=== PATIENT | male | born 1975 | race Caucasian/White ===

== ENCOUNTER 2019-05-31 13:46 | Outpatient (CLI) | payer OTHER ==
[2019-05-31 14:25] VITALS: BP 136/94
--- NOTE | 2019-05-31 14:25 | SLEEP CARE CONSULTATION ---
Information from patient questionnaire entered by Maureen Camara. I have reviewed and concur with the information entered by Maureen Camara. This document represents the service I personally performed and the decisions made by me, Gilberto Castellano MD, [facility]. History of Present Illness Reason for Visit: New patient Chief Complaint: reports: Snoring, Observed pauses in breathing, Fatigue, Frequent awakenings at night Duration of Symptoms: 3-5 years Usual bedtime: 2230 Time it takes to fall asleep: 15-45 minutes Snores at night: Yes Observed to quit breathing while asleep: Yes Sleeps alone due to snoring: Yes (somtimes) Number of times waking at night: 6-7 Reasons for waking at night: reports: Other (unknown reasons) Toss, Turn, or Twitch while sleeping: Yes Recalls having dreams: Yes Usually gets out of bed at: [id number] Feels refreshed in the morning: No Morning headache: No Sleepy or fatigued during the day: Yes Ever fallen asleep while driving: No Takes day naps: No Dreams during day naps: No Prior sleep studies: No Additional HPI information: I had the pleasure of seeing Mr. Youngblood today regarding the possibility of him having a sleep disorder. As you know, he is a 43 year old gentleman who complains of loud snore, frequent awakenings, and persistent fatigue for the past 3 5 years. The patient tells me that he normally goes to bed around 10:30 pm, and it takes him approximately 15 - 45 minutes to fall asleep. He has not been told that he snores loudly and irregularly at night. He has also never been observed to stop breathing in his sleep. His has to occasionally sleep in a separate room. He can recall waking up on the average of 6 - 7 times during the night. Most of the time he wakes up because of no reasons. He has awakened occasionally because of his own snoring, choking, and having to gasp for air. There is a lot of tossing and turning in his sleep. No somniloquy (sleep talking) or somnambulism (sleep walking). Generally he can recall having dreams. In the morning he usually gets up out of the bed around 5 - 6 a.m. not feeling refreshed nor rested. He usually does not have a morning headache. During the day he complains of feeling sleepy and fatigued. His score on [place] Sleepiness Scale is 3 out of 24. He has never fallen asleep while driving nor has had any accident due to sleepiness. He usually does not take naps during the day. Upon falling asleep during the day he denies having vivid dreams. He has never had sleep paralysis, experienced cataplexy but reports symptoms of restless leg syndrome. He denies having impaired concentration during the day. Subjective Initial [place] Sleepiness Scale score: 2 Past Medical History Past Medical History: reports: Other (BPH) Social History The patient's occupation is active . Patient is and lives in [place]. Have you smoked in the past 12 months: Yes Cigarettes per day (20/pack): 20 Years of smokin Quit date: 2012 Smoking Pack Years: 20.0 Alcohol use: Yes Alcohol amount and frequency: 2 drinks/week Caffeine use: Yes Caffeine amount and frequency: 16 oz/day Family History Family history of sleep disordered breathing: Yes Family Hx Sleep Apnea: Father: Snoring Allergies and Home Medications Drug allergies reviewed: Yes Home medication list reviewed: Yes Allergy and home medication list: Meds: Flomax Review of Systems Weight gain over past 5 years: 15 Cardiovascular: denies: high blood pressure, palpitations, chest pain, irregular heart rate or pulse, leg or foot swelling, have to sleep sitting up, other Respiratory: denies: shortness of breath, wheeze, sputum production, chronic cough, other Gastrointestinal: denies: heartburn, difficulty swallowing, nausea, vomitting, diarrhea, abdominal pain, other Urinary: reports: frequency Neurological: denies: headaches, seizure, head trauma, disorientation, speech dysfunction, gait or balance problems, fainting or unconsciousness, other Psychiatric: denies: Attention Deficit Hyperactivity, anxiety, depression, mood disorder, claustrophobia, other Ear/Nose/Throat: denies: nasal congestion, sinus problems, nose bleeds, dry mouth/throat, hoarseness, injury to nose, tonsillectomy, wisdom teeth removed, other Endocrine: denies: thyroid disease, history of goiter, sluggishness, too hot or cold, excessive thirst, increased appetite, increased urination, unexplained weakness, other Musculoskeletal: denies: joint pain, neck pain, back pain, joint swelling, muscle pain or cramping, mobility problems, other Immunologic: denies: sneezing, rash, itching, allergies to food or environment, other Physical Exam Vital signs obtained and entered by: Dr. Castellano Blood Pressure: 136/94 Cuff size: regular Heart Rate: 56 O2 Saturation: 98 Height: 6 ft 2 in Weight: 255 lb Body Mass Index: 32.7 BMI Classification: Obesity Class 1 Mood/affect: normal HEENT: No craniofacial malformation Nostrils: patent to airflow Turbinates: normal Septum: midline Mouth and throat: narrow oropharynx Soft palate: long Hard palate: normal Uvula: normal Uvula visualization: 50% Mallampati Class II Tongue: normal in size Tonsils: absent bilaterally Chin and jaw: normal size and position Neck: normal w/o lymphadenopathy or thyromegaly Heart: regular rate and rhythm Lungs: clear bilaterally Abdomen: soft Extremities: no edema or clubbing Neurologic: intact Impression and Plan IMPRESSION: 1. Obstructive Sleep Apnea-Hypopnea Syndrome, as suggested by history of loud and irregular snoring, observed cessation of breath while asleep, frequent awakenings during the night, unrefreshed sleep, and daytime hypersomnolence. Narrow oropharynx and obesity are common predisposing factors for obstructive sleep apnea-hypopnea syndrome. Pathophysiology of sleep-disordered breathing was discussed. I recommend proceeding to polysomnography to confirm the diagnosis and to assess severity. If he has significant sleep disordered breathing, a manual CPAP titration study will also be performed to find the optimal treatment pressure. I informed the patient of what the sleep studies involve and after some discussion, he agreed to proceed. Plan: 1. Schedule polysomnography + manual CPAP titration study and return in 1 to 2 weeks after the study to discuss result and initiate therapy. 2. Avoid long distance driving or when feeling sleepy. 3. Avoid alcohol, sedative and muscle relaxant around bedtime. 4. Attempt to lose weight. I spent 100% of this 20 minute visit face to face with the patient with greater than 50% of this was spent time counseling the patient and coordination of care.
== END 2019-05-31 13:47 | disposition home or self-care (01) ==
LOC: SC 13:46
PROVIDERS: ATTEND Internal Medicine Pulmonary Disease
DX: R06.83 Snoring (principal); R06.81 Apnea, not elsewhere classified; G47.8 Other sleep disorders; G47.10 Hypersomnia, unspecified
CPT/HCPCS: 99203; 99212

== ENCOUNTER 2019-09-23 20:22 | Outpatient (CLI) | payer OTHER | END 2019-09-23 20:23 | disposition home or self-care (01) | LOC: SC 20:22 | PROVIDERS: ATTEND Internal Medicine Pulmonary Disease | DX: G47.33 Obstructive sleep apnea (adult) (pediatric) (principal); E66.9 Obesity, unspecified; Z68.32 Body mass index [BMI] 32.0-32.9, adult | CPT/HCPCS: 95810 ==

== ENCOUNTER 2019-10-12 10:49 | Outpatient (CLI) | payer OTHER ==
[2019-10-12 11:37] VITALS: BP 118/80
--- NOTE | 2019-10-12 11:37 | SLEEP CARE CONSULTATION ---
Information from patient questionnaire entered by Brandi Mcgill. I have reviewed and concur with the information entered by Brandi Mcgill. This document represents the service I personally performed and the decisions made by me, Penny Ramirez RN, MSN, [employer]. History of Present Illness Initial [place] Sleepiness Scale score: 2 Current [place] Sleepiness Scale score: 9 Additional HPI information: ZELDA MATOS returns for follow up and results of the recently performed polysomnography. I explained the pathophysiology behind obstructive sleep apnea. We then spent quite a bit of time discussing different treatment options. For mild obstructive sleep apnea, surgery and oral appliance are alternatives to nasal CPAP therapy but in moderate or severe cases, nasal CPAP is the most effective and reliable treatment. Because apnea is primarily in supine position, then positional management therapy could be effective. Methods discussed such as positioning with pillows, using a T-shirt with tennis balls in the back, and shown commercial products that have a pillow format on back to prevent supine sleep. I reviewed the impact of weight changes on sleep apnea and strongly recommended losing weight. After some discussion, the patient opted to go with the nasal CPAP therapy. After discussion of manual titration or autoCPAP to initiate therapy he chose manual titration. Patient counseled not drink alcohol less than 4 hours before bedtime as it can increase snoring and apnea. Patient does not drink alcohol. Patient was cautioned about risks of drowsy driving until sleepiness symptoms resolve. Patient denies drowsy driving. AAS patient education on snoring and sleep apnea obtained at last visit. Sleep Study - Results Polysomnography/Home Sleep Study results: The quality of the study is good. The patient had normal sleep efficiency. The sleep architecture was abnormal for sleep fragmentation and reduced amount of time spent in slow wave sleep (N3). Respiratory monitoring showed mild obstructive sleep apnea-hypopnea (AHI = 12.3) associated with frequent arousals, oxyhemoglobin desaturation and mild hypoxia (blaise oxygen saturation of 80%). Baseline oxygen saturation was normal. The respiratory events occurred more frequently during supine sleep (supine AHI = 19.1; non-supine = 8.14). Snore was light to loud in intensity. There was no significant periodic leg movement of sleep. Cardiac rhythm was normal sinus rhythm without significant arrhythmia. No abnormal behavior (parasomnia) observed during the night. Allergies and Home Medications Known drug allergies: No Home medication list reviewed: Yes Allergy and home medication list: Flomax 0.4 mg? daily Review of Systems Review of systems same as previous: Yes Physical Exam Blood Pressure: 118/80 Cuff size: long Heart Rate: 88 O2 Saturation: 96 Height: 6 ft 2 in Weight: 270 lb 9.6 oz (with boots and fatigue) Body Mass Index: 34.7 BMI Classification: Obese Impression and Plan 1. Obstructive Sleep Apnea-Hypopnea Syndrome, mild but moderate in supine position, with lowest oxygen saturation of 80% . Obviously this is the cause of the patients symptoms of unrefreshed sleep, and excessive daytime sleepiness. As mentioned above, the patient will be scheduled aa manual titration study. Because the apnea is more severe supine, I instructed him to avoid sleeping supine using pillow positioning until able to start CPAP use. * Schedule manual titration study . * Attempt to lose weight. * Avoid alcohol consumption near bedtime. * Avoid supine sleep until using CPAP. * The patient is again cautioned about driving until sleepiness completely resolves. * Return after manual titration study completed. Time Spent with Patient (minutes): 30 I spent 100% of this visit face to face with the patient with greater than 50% of this was spent time counseling the patient and coordination of care.
== END 2019-10-12 10:50 | disposition home or self-care (01) ==
LOC: SC 10:49
PROVIDERS: ATTEND Nurse Practitioner Family
DX: G47.33 Obstructive sleep apnea (adult) (pediatric) (principal); E66.9 Obesity, unspecified; Z68.34 Body mass index [BMI] 34.0-34.9, adult
CPT/HCPCS: 99212; 99214

== ENCOUNTER 2020-07-19 13:35 | Outpatient (CLI) | payer OTHER ==
--- NOTE | 2020-07-19 14:13 | SLEEP CARE CONSULTATION ---
Information from patient questionnaire entered by Sondra Jurado. I have reviewed and concur with the information entered by Sondra Jurado. This document represents the service I personally performed and the decisions made by , Staci Capps ARNP. History of Present Illness Service Date and Time: 07/19/2020 1335 Previous diagnosis: Mild, Obstructive Sleep Apnea-Hypopnea Syndrome AHI: 12.3 Reason for follow up: other (9-month followup - requalify) Prior sleep studies: No Year and Where: 2019 [facility] Type of Sleep Study: Polysomnography HPI additional information: ZELDA MATOS was diagnosed to have mild, AHI 12.3, obstructive sleep apnea- hypopnea syndrome 09/2019 and returns today to re-qualify. He was ordered to do a titration study but this did not get completed and CPAP therapy was not started at that time because of complications caused by Covid pandemic. Sleep Study - Results Prior sleep studies: No Subjective Initial [place] Sleepiness Scale score: 2 (in 2018) Current [place] Sleepiness Scale score: 9 Allergies and Home Medications Drug allergies reviewed: Yes (NKDA) Home medication list reviewed: Yes (flomax) Review of Systems Review of systems same as previous: Yes (no changes) Physical Exam Heart Rate: 70 O2 Saturation: 97 Height: 6 ft 2 in Weight: 271 lb Body Mass Index: 34.7 BMI Classification: Obese Impression and Plan 1. Obstructive Sleep Apnea-Hypopnea Syndrome, as previously diagnosed in August 2019 and suggested by a continued history of snoring, observed cessation of breath while asleep, morning headache, frequent awakening during the night, unrefreshed sleep, and excessive daytime sleepiness. Since it has bee 9 months since last test without starting of the CPAP we will need to re-verify his diagnosis prior to starting him on CPAP therapy. He voiced understanding and agreement with plan. * Schedule HST to verify TONY diagnosis. * Avoid long distance driving or driving when feeling sleepy. * Avoid alcohol, sedative and muscle relaxant around bedtime. * Attempt to lose weight. * Review instructions provided by trained office staff on how to prepare for the sleep study. * Return for follow-up after sleep study completed. Visit Type: In Office Time Spent with Patient (minutes): 19 Provider Statement: I spent 100% of the Face to Face Visit with the patient with greater than 50% spent counseling the patient and coordination of care.
== END 2020-07-19 13:36 | disposition home or self-care (01) ==
LOC: SC 13:35
PROVIDERS: ATTEND Nurse Practitioner Family
DX: G47.33 Obstructive sleep apnea (adult) (pediatric) (principal); E66.9 Obesity, unspecified; Z68.34 Body mass index [BMI] 34.0-34.9, adult
CPT/HCPCS: 99212; 99213

== ENCOUNTER 2020-08-10 12:55 | Outpatient (CLI) | payer OTHER | END 2020-08-10 12:56 | disposition home or self-care (01) | LOC: SC 12:55 | PROVIDERS: ATTEND Nurse Practitioner Family | DX: G47.33 Obstructive sleep apnea (adult) (pediatric) (principal); R09.02 Hypoxemia | CPT/HCPCS: 95806 ==

== ENCOUNTER 2020-08-16 14:24 | Outpatient (CLI) | payer OTHER ==
--- NOTE | 2020-08-16 15:00 | SLEEP CARE CONSULTATION ---
Information from patient questionnaire entered by Sondra Jurado. I have reviewed and concur with the information entered by Sondra Jurado. This document represents the service I personally performed and the decisions made by , Staci Capps ARNP. History of Present Illness Service Date and Time: 08/16/2020 142 Initial [place] Sleepiness Scale score: 2 (in 2019) Current [place] Sleepiness Scale score: 6 Additional HPI information: ZELDA MATOS returns for follow up and results of the recently performed home sleep study. I explained the pathophysiology behind obstructive sleep apnea. We then spent quite a bit of time discussing different treatment options. For mild obstructive sleep apnea, surgery and oral appliance are alternatives to nasal CPAP therapy but in moderate or severe cases, nasal CPAP is the most effective and reliable treatment. Because apnea is primarily in supine position, then positional management therapy could be effective. Methods discussed such as positioning with pillows, using a T-shirt with tennis balls in the back, and shown commercial products that have a pillow format on back to prevent supine sleep. I reviewed the impact of weight changes on sleep apnea and strongly recommended losing weight. After some discussion, the patient opted to go with the nasal CPAP therapy. Nasal autoCPAP set at [id number] will be ordered with rationale explained. A manual titration study will be ordered if unable to find optimal pressure with office adjustments. I explained how CPAP machine works with sample devices RespirMeetyls Dreamstation and [id number] and what to expect when using the machine. Using CPAP every night in order to get used to it was emphasized. Patient advised to put CPAP mask on before getting into bed so as not to fall asleep without CPAP. To assist acclimation to CPAP use, it could also be used for a short time during day while reading or watching TV. The patient was instructed to call the CPAP supplier to discuss any mechanical problem that may occur. If the mask given is uncomfortable or is difficult to keep on through the night even with adjustment, contact the CPAP supplier as many will replace with another mask style if notified before 30 days. If snoring or perceives is not getting enough air or too much air from the machine, notify this office. AAS patient education PAP tips reviewed and given to patient. Sleep Study - Results Type of Sleep Study: Home sleep study Prior sleep studies: Yes Year and Where: 2019 [facility] Polysomnography/Home Sleep Study results: Physician Impression: The quality of the study is good. The length of the study is adequate (> 240 minutes). Please also see the tabulated and graphic data. 1. Obstructive Sleep Apnea-Hypopnea (ICD-10 G47.33), moderate, with an AHI of 16.9/hr and blaise SaO2 of 72%. During the study, the patient had 55 apneas (53 obstructive, 2 central, 0 mixed) and 83 hypopneas. The longest episode lasted 55.0 seconds. The respiratory events occurred almost exclusively during supine sleep (supine AHI was 17.9 and non-supine, 4.92). 2. Hypoxemia (ICD-10 R09.02), moderate, with the lowest oxygen saturation of 72 % and 41.3 minutes with SaO2 under 90%. Baseline oxygen saturation was normal (Average oxygen saturation was 92%). Allergies and Home Medications Drug allergies reviewed: Yes (NKDA) Home medication list reviewed: Yes (no changes) Review of Systems Review of systems same as previous: Yes (no changes) Physical Exam Heart Rate: 91 O2 Saturation: 97 Height: 6 ft 2 in Weight: 272 lb Body Mass Index: 34.9 BMI Classification: Obese Impression and Plan 1. Obstructive Sleep Apnea-Hypopnea Syndrome, moderate, with lowest oxygen saturation of 72%. Obviously this is the cause of the patients symptoms of unrefreshed sleep, and excessive daytime sleepiness. Positive pressure therapy c ould benefit his overall health and reduce risks for cardiovascular and cerebrovascular adverse events. As mentioned above, the patient will be started on nasal autoCPAP therapy with pressure set at 4-15 cmH2O. A manual titration study will be completed if unable to find optimal treatment pressure with office adjustments. Compliance guidelines also reviewed. A copy of compliance guidelines will be given for reference at check out. Because the apnea is more severe supine, I instructed to avoid sleeping supine using pillow positioning until able to start CPAP use. 2. Hypoxemia, moderate. Patient's result from his sleep study included his blaise oxygen saturation at 72% and he spent 41.3 minutes with oxygen saturation under 90%. He is starting CPAP therapy to reduce apnea and oxygen desaturations. * Nasal auto CPAP therapy, pressure at 4-15 cm H2O. * Attempt to lose weight. * Avoid alcohol consumption near bedtime. * Avoid supine sleep until using CPAP. * The patient is again cautioned about driving until sleepiness completely resolves. * Return one month after CPAP obtained. I will assess response to therapy and compliance at that time. Counseling Topics: Weight loss health impact Visit Type: In Office Time Spent with Patient (minutes): 18 Provider Statement: I spent 100% of the Face to Face Visit with the patient with greater than 50% spent counseling the patient and coordination of care.
== END 2020-08-16 14:25 | disposition home or self-care (01) ==
LOC: SC 14:24
PROVIDERS: ATTEND Nurse Practitioner Family
DX: G47.33 Obstructive sleep apnea (adult) (pediatric) (principal); R09.02 Hypoxemia; E66.9 Obesity, unspecified; Z68.34 Body mass index [BMI] 34.0-34.9, adult
CPT/HCPCS: 99212; 99213